=== PATIENT | female | born 1965 | race African-American/Black ===

== ENCOUNTER 2022-09-08 17:01 | Emergency (ER) | payer OTHER ==
[~2022-09-08] VITALS: Ht 167.6 cm; Wt 95.3 kg
[~2022-09-08 17:01] MED LIST: ACET-8905 PO; LACT10SO11 PO; LORA-476 PO; PHEN-1900 PO; VIC PO; ZOLP10TA1 PO
[2022-09-08 17:11] VITALS: BP 122/79; PULSE 105; RESP 17; TEMP 97.4; O2SAT 98
--- NOTE | 2022-09-08 17:55 | NUR ---
Patient discharged with v/s stable. Written and verbal after care instructions given and explained. Patient verbalized understanding. Ambulatory with steady gait. All questions addressed prior to discharge. Advised to follow up with PMD.
== END 2022-09-08 17:55 | disposition home or self-care (01) ==
LOC: MED 17:01
DX: F10.129 Alcohol abuse with intoxication, unspecified (principal); Y90.9 Presence of alcohol in blood, level not specified
CPT/HCPCS: 99283